=== PATIENT | male | born 1980 | race Caucasian/White ===

== ENCOUNTER 2017-05-10 11:25 | Inpatient (IN) ==
[2017-05-06 09:10] LABS: MANUAL DIFF NEEDED? NO; URINE MICRO REVIEW NEEDED? NO; URINE SOURCE CLEAN CATCH
[2017-05-06 09:13] LABS: BASO% 0.2 % (0.0-0.8); EOS# 0.65 X1000 (0.0-0.7); EOS% 6.2 % (0.0-10.0); HEMATOCRIT 43.6 % (42.0-52.0); HEMOGLOBIN 14.4 g/dL (14.0-18.0); LYMPH# 1.72 X1000 (1.2-3.4); LYMPH% 16.4 % (20.5-51.1); MCH 28.6 PG (27-31); MCV 86.5 FL (81-99); MONO% 5.7 % (1.7-9.3); MPV 9.4 FL (7.4-10.4); NEUT% 71.5 % (42.2-75.2); PLT 278 X1000 (130-400); RBC 5.04 XMIL (4.7-6.1)
[2017-05-06 09:16] LABS: BILIRUBIN URINE NEGATIVE (NEGATIVE); BLOOD URINE NEGATIVE (NEGATIVE); COLOR YELLOW; GLUCOSE URINE NEGATIVE (NEGATIVE); LEUKOCYTES URINE NEGATIVE (NEGATIVE); NITRITE URINE NEGATIVE (NEGATIVE); PROTEIN URINE TRACE mg/dL (NEGATIVE); SP GRAVITY URINE 1.026; TURBIDITY URINE CLEAR (CLEAR); UR EPITHELIAL CELLS <10 /HPF (<10); URINE BACTERIA NEGATIVE /HPF; URINE RBC <10 /HPF (<10); URINE WBC <10 /HPF (<10); UROBILINOGEN URINE NORMAL (NORMAL)
[2017-05-06 09:26] LABS: INR 0.95; PROTIME 9.9 Seconds (9.2-11.7); PTT 29.1 Seconds (22.0-36.0)
[2017-05-06 09:59] LABS: AGAP 10; BUN 12 mg/dL (8-22); CALCIUM 8.9 mg/dL (8.8-10.2); CHLORIDE 100 mmol/L (98-107); COSMO 279; SODIUM 138 mmol/L (136-145); TCO2 28 mmol/L (25-35)
[2017-05-10] MEDS ORDERED: REGLAN ONE (11:51)
[2017-05-10] MEDS ORDERED: KEFZOL 2 GM/D5W 2 GM/50 ML IVPB ONE (11:51)
[2017-05-10] MEDS ORDERED: LR 1,000 ML ONE (11:51)
[2017-05-10] MEDS ORDERED: PEPCID ONE (11:51)
[2017-05-10] MEDS ORDERED: LYRICA ONE (11:53)
[2017-05-10] MEDS ORDERED: CELEBREX ONE (11:53)
[2017-05-10] MEDS ORDERED: COLACE ONE (11:53)
[2017-05-10] MEDS ORDERED: NEOSPORIN G.U. IRRIGANT ONE (15:07)
[2017-05-10] MEDS ORDERED: SENSORCAINE 0.25%/EPI 1:200,000 ONE (15:07)
[2017-05-10] MEDS ORDERED: DURAMORPH ONE (15:07)
[2017-05-10] MEDS ORDERED: VANCOMYCIN ONE (15:07)
[2017-05-10] MEDS ORDERED: TORADOL ONE (15:07)
[2017-05-10] MEDS ORDERED: SODIUM CHLORIDE 0.9% ONE (15:07)
[2017-05-10] MEDS ORDERED: EXPAREL 1.3% ONE (15:07)
[2017-05-10] MEDS ORDERED: CYKLOKAPRON 1,000 MG/NS 2,000 MG/200 ML IVPB ONE (15:07)
[2017-05-10] MEDS ORDERED: DIPRIVAN 1% 500 MG/50 ML BOTTLE ONE (15:20)
[2017-05-10] MEDS ORDERED: FENTANYL ONE (15:42)
[2017-05-10] MEDS ORDERED: VERSED ONE (15:44)
[2017-05-10] MEDS ORDERED: OFIRMEV 1000 MG/ISOTONIC SOLN 1,000 MG/100 ML BOTTLE ONE (15:49)
[2017-05-10] MEDS ORDERED: XYLOCAINE-MPF 2% ONE (15:49)
[2017-05-10] MEDS ORDERED: ZOFRAN ONE (15:49)
[2017-05-10] MEDS ORDERED: DECADRON ONE (15:49)
[2017-05-10 16:15] LABS: URINE MICRO REVIEW NEEDED? NO; URINE SOURCE CATH
[2017-05-10] MEDS ORDERED: EPHEDRINE ONE (16:30)
[2017-05-10 16:31] LABS: BILIRUBIN URINE NEGATIVE (NEGATIVE); BLOOD URINE NEGATIVE (NEGATIVE); COLOR YELLOW; GLUCOSE URINE NEGATIVE (NEGATIVE); LEUKOCYTES URINE NEGATIVE (NEGATIVE); NITRITE URINE NEGATIVE (NEGATIVE); PH URINE 5.5; PROTEIN URINE 30 mg/dL (NEGATIVE); SP GRAVITY URINE 1.034; TURBIDITY URINE HAZY (CLEAR); UR EPITHELIAL CELLS <10 /HPF (<10); URINE BACTERIA NEGATIVE /HPF; URINE RBC <10 /HPF (<10); URINE WBC <10 /HPF (<10); UROBILINOGEN URINE NORMAL (NORMAL)
[2017-05-10] MEDS ORDERED: NS 1,000 ML ONE (17:42)
[2017-05-10] MEDS ORDERED: MORPHINE IV PRN (18:00)
[2017-05-10] MEDS ORDERED: AMBIEN PO PRN (18:00)
[2017-05-10] MEDS ORDERED: MILK OF MAGNESIA PO PRN (18:00)
[2017-05-10] MEDS: NS 1,000 ML IV SCH (20:00)
[2017-05-10] MEDS: TYLENOL PO SCH (20:39)
[2017-05-10] MEDS: LYRICA PO SCH (20:40)
[2017-05-10] MEDS: COLACE PO SCH (20:40)
[2017-05-10] MEDS: CELEBREX PO SCH (20:40)
[2017-05-10] MEDS: ULTRAM PO SCH (20:40)
[2017-05-10] MEDS: KEFZOL 2 GM/D5W 2 GM/50 ML IVPB IV SCH (23:56)
[2017-05-10] MEDS: OXY IR PO PRN (23:58)
[2017-05-11] MEDS ORDERED: COLCRYS PO PRN (00:39)
[2017-05-11] MEDS: ULTRAM PO SCH ×2 (01:52→08:16)
[2017-05-11] MEDS: TYLENOL PO SCH ×2 (01:52→08:15)
--- NOTE | 2017-05-11 03:38 | OPERATIVE NOTE ---
PROCEDURE DATE: 05/10/2017 PREOPERATIVE DIAGNOSIS: Left knee degenerative joint disease. POSTOPERATIVE DIAGNOSIS: Left knee degenerative joint disease. PROCEDURE PERFORMED: Left total knee arthroplasty using a [employer] size 8 femoral component, a size 8 tibial baseplate, a 12 mm articular insert, and a 35 mm patellar component. ANESTHESIA: Spinal. SURGEON: Julio Machado MD. GAS WELDER APPRENTICE: Tiffanie Montero PA-C, who was present throughout the case and was critical with assisting with the cutting of the femur, the tibia, the patella, cementing and removing the excess cement of the components, as well as wound closure. SECOND REMOTE MEDICAL CODER: Eusebio Aiken RN. COMPLICATIONS: None. BLOOD LOSS: Minimal. DRAINS: Hemovac x1. DESCRIPTION OF PROCEDURE: The patient was brought to the operative suite and placed in the supine position. After successful administration of spinal anesthesia, a well-padded tourniquet was placed on the left proximal thigh. The left lower extremity was prepped and draped in the usual sterile fashion. Leg was exsanguinated. Tourniquet was insufflated to 350 torr. A longitudinal incision was made beginning at the superior pole of the patella and extending distally to the tibial tuberosity. The full-thickness skin flaps were elevated medially and laterally. Then a medial arthrotomy was made with a vastus snip. The medial capsule was elevated off the medial tibial plateau. The prepatellar fat pad, ACL, PCL, medial meniscus, and lateral meniscus were excised. A drill was entered in the center of the distal femur. An intramedullary guide was placed. A distal cutting block was pinned in place. The distal cut was made with an oscillating saw. The femur was sized to a size 8. A size 8 cutting block was pinned in place. The anterior cuts, chamfer cuts, and posterior condylar cuts were made with the oscillating saw. Marginal osteophytes were removed with a rongeur. A box cutting block was pinned in place. A box cut was made with an oscillating saw and a box osteotome. Then the posterior condylar osteophytes were removed with a curved osteotome and rongeur. Attention was then directed to the tibia. A drill was entered in the center of the tibia. An intramedullary guide was placed, checking the line with a drop adilene, referencing off the anterior cortex of the tibia and the second ray of the foot, and taking 4 mm off the low side of the tibia which, in this case, was medially. The tibial cutting block was pinned in place. The articular surface of the tibial plateau was removed with an oscillating saw. The flexion and extension gaps were checked and balanced at 12 mm. The tibia sized to a size 8. A size 8 guide was for the fin punch. Then the tibial trial, femoral trial, and articular insert were placed. The knee was taken through a range of motion and found to have excellent alignment, balancing, and range of motion. Attention was then directed to the patella and 9 mm of the articular surface of patella were removed with an oscillating saw. The patella sized to a size 35. A size 35 guide was used to drill peg holes. The lateral facet was chamfered 30 to 45 degrees. Patella trial was placed, taken through a range of motion, and found to have excellent patellar tracking. All trials were then removed. The knee was copiously irrigated and dried, being certain all bone debris was removed. The tibial component, femoral component, and patellar component were cemented in place, excess cement being removed with a [place]. Once the cement had hardened, excess cement was again removed with an osteotome. The knee was again copiously irrigated and dried, being certain all bone and cement debris were removed. The trial articular insert was removed. The knee was copiously infiltrated with Exparel including the posterior capsule, anterior capsule, medial and lateral collateral ligaments, anterior musculature, and subcutaneous tissue. A drain was placed, exiting superolaterally and buried in the lateral gutter. The medial arthrotomy was closed with a running 0 V-Loc suture. The skin edges were approximated with 2-0 Vicryl. The skin was closed with Prineo. A sterile dressing was applied. The patient tolerated the procedure well without complication. At the end the procedure, all counts were correct x2. The patient was transferred to the recovery room in stable condition. cc: Julio Machado MD
[2017-05-11] MEDS: OXY IR PO PRN ×2 (03:40→10:55)
[2017-05-11] MEDS: ZOFRAN IV PRN ×2 (03:42→10:58)
[2017-05-11] MEDS ORDERED: CHLORASEPTIC SORE THROAT LOZENGE MT PRN (03:45)
[2017-05-11 05:50] LABS: HEMATOCRIT 40.4 % (42.0-52.0); HEMOGLOBIN 13.5 g/dL (14.0-18.0)
[2017-05-11] MEDS ORDERED: XARELTO PO SCH (06:00)
[2017-05-11 06:13] LABS: AGAP 10; BUN 17 mg/dL (8-22); CALCIUM 8.9 mg/dL (8.8-10.2); CHLORIDE 99 mmol/L (98-107); COSMO 276; POTASSIUM 4.5 mmol/L (3.5-5.1); SODIUM 135 mmol/L (136-145); TCO2 26 mmol/L (25-35)
[2017-05-11] MEDS: KEFZOL 2 GM/D5W 2 GM/50 ML IVPB IV SCH (07:30)
[2017-05-11] MEDS: NS 1,000 ML IV SCH (07:32)
[2017-05-11 07:40] VITALS: BP 138/58
[2017-05-11] MEDS: LYRICA PO SCH (08:16)
[2017-05-11] MEDS: COLACE PO SCH (08:17)
[2017-05-11] MEDS: CELEBREX PO SCH (08:17)
[2017-05-11] MEDS ORDERED: DECADRON IV ONE (09:00)
[2017-05-11] MEDS ORDERED: HYZAAR 50/12.5 MG PO SCH (09:00)
[2017-05-11] MEDS ORDERED: PERIDEX MT SCH (09:00)
[2017-05-11] MEDS ORDERED: GLUCOPHAGE PO SCH (09:00)
[2017-05-11] MEDS ORDERED: PRILOSEC PO SCH (09:00)
[2017-05-11] MEDS ORDERED: ZYLOPRIM PO SCH (09:00)
--- NOTE | 2017-05-11 19:28 | DISCHARGE SUMMARY ---
ADMISSION DATE: 05/10/2017 DISCHARGE DATE: 05/11/2017 DISCHARGE DIAGNOSIS: Left knee degenerative joint disease status post left total knee arthroplasty. DISCHARGE MEDICATIONS: See discharge medication list. DISPOSITION: The patient is discharged home with home health. DISCHARGE INSTRUCTIONS FOR TOTAL KNEE ARTHROPLASTY PROTOCOL: Instructed to return to see Dr. Machado next . HOSPITAL COURSE: On the day of admission, patient underwent a left total knee arthroplasty. His postoperative course was unremarkable. At discharge he is afebrile, tolerating a regular diet. He had an 0 mL of output from his Hemovac. His hemoglobin is 13.5 and hematocrit is 40.4. His wound is clean, dry, and intact without sign of infection. His calf is soft. We will have him discharged home with home health after he works with Physical Therapy this morning. We will have him follow up as described above. Dictated by BOBBY Gonzalez for Julio Machado MD cc: BOBBY Gonzalez MD
== END 2017-05-11 12:13 | disposition home or self-care (01) ==
LOC: SURHOLD 11:25 → 4N 17:42
PROVIDERS: ADMIT Orthopaedic Surgery; ATTEND Orthopaedic Surgery